=== PATIENT | male | born 1995 | race Caucasian/White ===

== ENCOUNTER 2017-08-17 14:12 | Emergency (ER) | payer MEDICAID ==
[~2017-08-17] VITALS: Ht 175.3 cm; Wt 77.1 kg
[2017-08-17 14:15] VITALS: BP_SYST 146
[2017-08-17] MEDS ORDERED: ONDANSETRON HCL 4 MG/2 ML VIAL ONE (14:44)
[2017-08-17] MEDS ORDERED: ONDANSETRON HCL 4 MG/2 ML VIAL IVP ONE ×2 (14:45→17:30)
[2017-08-17 14:49] LABS: BASOPHILS % (AUTO) 0.2 % (0.0-2.0); HEMATOCRIT 45.7 % (36-54); HEMOGLOBIN 15.5 g/dL (14.0-18.0); LYMPHOCYTES # (AUTO) 1.4 K/uL (1.0-5.5); LYMPHOCYTES % (AUTO) 8.7 % (20.5-51.5); MEAN CORPUSCULAR HEMOGLOBIN 30 pg (27-31); MEAN CORPUSCULAR HGB CONC 34 % (32-36); MEAN CORPUSCULAR VOLUME 87 fL (79.0-98.0); MONOCYTES # (AUTO) 0.7 K/uL (0.0-1.0); MONOCYTES % (AUTO) 4.5 % (1.7-9.3); NEUTROPHILS # (AUTO) 13.7 K/uL (1.8-7.7); PLATELET COUNT (AUTO) 335 K/uL (130-430); RED BLOOD CELL COUNT(AUTO) 5.27 MIL/uL (4.2-6.2); RED CELL DISTRIBUTION WIDTH 11.3 % (9.0-15.0); WHITE BLOOD COUNT (AUTO) 15.8 K/uL (4.8-10.8)
[2017-08-17] MEDS ORDERED: LORazepam 2 MG/ML VIAL (FOR ER USE) IVP ONE (15:00)
[2017-08-17 15:05] LABS: ANION GAP 17 (5-15); CALCIUM 10.3 mg/dL (8.4-11.0); CHLORIDE 92 mmol/L (98-107); CREATININE 1.09 mg/dL (0.55-1.30); GLUCOSE 104 mg/dL (70-99); SODIUM SERUM 129 mmol/L (136-145); UREA NITROGEN, BLOOD 7 mg/dL (8-21)
[2017-08-17 15:09] LABS: ALANINE AMINOTRANSFERASE 52 U/L (12-78); ALBUMIN 5.3 g/dL (3.4-4.8); ALCOHOL, BLOOD 4 mg/dL (<10); ASPARTATE AMINOTRANSFERASE 19 U/L (10-37); TOTAL BILIRUBIN 0.8 mg/dL (0.0-1.0)
[2017-08-17 15:10] LABS: NEUTROPHILS % (AUTO) 86.6 % (40.0-70.0)
[2017-08-17 15:11] LABS: INR 1.1 (0.80-1.20); PROTHROMBIN TIME 11.1 SECS (9.5-12.5)
[2017-08-17 15:13] LABS: ACETAMINOPHEN < 1 ug/mL (1-30); GFR AFRICAN AMERICAN 108 mL/min (>90)
[2017-08-17 15:24] LABS: BILIRUBIN,URINE NEGATIVE (NEGATIVE); BLOOD, URINE 1+ (NEGATIVE); CLARITY/URINE CLEAR (CLEAR); COLOR,URINE YELLOW (YELLOW); GLUCOSE,URINE NEGATIVE (NEGATIVE); KETONES,URINE 2+ (NEGATIVE); LEUKOCYTE ESTERASE ,URINE NEGATIVE (NEGATIVE); NITRITE, URINE NEGATIVE (NEGATIVE); PROTEIN URINE NEGATIVE (NEGATIVE); UROBILINOGEN,URINE 0.2 (0.2-1.0)
[2017-08-17] MEDS ORDERED: NACL 0.9% 1,000 ML IV ONE (15:30)
[2017-08-17 15:51] LABS: BARBITURATE, URINE NEGATIVE (NEG <=200); BENZODIAZEPINE, URINE NEGATIVE (NEG <=150); CANNABINOID, URINE NEGATIVE (NEG <=50); COCAINE, URINE POSITIVE (NEG <=150); METHAMPHETAMINES SCREEN,URINE NEGATIVE (NEG <=500); OPIATE, URINE NEGATIVE (NEG <=100); PHENCYCLIDINE SCREEN,URINE NEGATIVE (NEG <=25); UR TRICYCLIC ANTIDEPRESSANTS NEGATIVE (NEG <=300); URINE AMPHETAMINE NEGATIVE (NEG <=500); URINE METHADONE NEGATIVE (NEG <=200); URINE OXYCODONE SCREEN NEGATIVE (NEG <=100); URINE PROPOXYPHENE SCREEN NEGATIVE (NEG <=300)
[2017-08-17 15:58] LABS: BACTERIA,URINE FEW /HPF (None Seen); COARSE GRANULAR CASTS,URINE 0-1 /LPF (None Seen); MUCUS,URINE 1+ /LPF (None Seen); WBC,URINE 0-3 /HPF (0-3)
[2017-08-17 18:10] VITALS: BP_SYST 116
== END 2017-08-17 18:10 | disposition home or self-care (01) ==
LOC: SED 14:12
DX: T40.5X1A Poisoning by cocaine, accidental (unintentional), initial encounter (principal); F14.129 Cocaine abuse with intoxication, unspecified; E86.0 Dehydration; F17.200 Nicotine dependence, unspecified, uncomplicated; Z71.6 Tobacco abuse counseling; Y92.89 Other specified places as the place of occurrence of the external cause
CPT/HCPCS: 36415; 71045; 80048; 80053; 80307; 81000; 84484; 85025; 85610; 85730; 93005; 96361; 96374; 96375; 96376; 99285; G0480; G0481; G0482; J2060; J2405; J7030

== ENCOUNTER 2018-11-12 11:12 | Emergency (ER) | payer MEDICAID ==
[~2018-11-12] VITALS: Ht 175.3 cm; Wt 72.6 kg
[2018-11-12 11:12] VITALS: BP_SYST 120
[2018-11-12] MEDS ORDERED: DEXAMETHASONE SOD PHOSPHATE 10 MG/ML VIAL IM ONE (12:00)
[2018-11-12 12:04] VITALS: BP_SYST 118
== END 2018-11-12 12:04 | disposition home or self-care (01) ==
LOC: SED 11:12
DX: R09.89 Other specified symptoms and signs involving the circulatory and respiratory systems (principal)
CPT/HCPCS: 70360; 96372; 99283; J1100

== ENCOUNTER 2019-07-23 06:05 | Emergency (ER) | payer MEDICAID ==
[~2019-07-23] VITALS: Ht 175.3 cm; Wt 68.0 kg
[2019-07-23 06:30] VITALS: BP_SYST 123
--- NOTE | 2019-07-23 07:30 | NUR ---
Patient to ER bed 03 to gown for evaluation. Side rails up.
--- NOTE | 2019-07-23 07:32 | NUR ---
Patient arrived in the ED c/o chest wall pain x 1 month. Denied any nausea or vomiting. Denied any shortness of breath. Alert and oriented x4, respirations even and unlabored, ambulating with a steady gait, speaking in full sentences. VS WNL, pain level 2/10. Informed of the wait time. Instructed to notify ED staff if there are any changes in condition or worsening of symptoms. Patient verbalized understanding.
--- NOTE | 2019-07-23 07:35 | NUR ---
Patient ambulated to the bathroom in a steady gait. Urine specimen collected.
--- NOTE | 2019-07-23 08:00 | NUR ---
LEYLA Tubbs at bedside examining patient.
[2019-07-23 08:18] LABS: BASOPHILS % (AUTO) 0.4 % (0.0-2.0); EOSINOPHILS # (AUTO) 0.1 K/uL (0.0-0.4); EOSINOPHILS % (AUTO) 1.2 % (0.0-4.0); HEMATOCRIT 38.9 % (36-54); HEMOGLOBIN 13.8 g/dL (14.0-18.0); LYMPHOCYTES # (AUTO) 2.7 K/uL (1.0-5.5); LYMPHOCYTES % (AUTO) 33.7 % (20.5-51.5); MEAN CORPUSCULAR HEMOGLOBIN 31 pg (27-31); MEAN CORPUSCULAR HGB CONC 36 % (32-36); MEAN CORPUSCULAR VOLUME 87 fL (79.0-98.0); MONOCYTES # (AUTO) 0.4 K/uL (0.0-1.0); MONOCYTES % (AUTO) 5.1 % (1.7-9.3); NEUTROPHILS # (AUTO) 4.7 K/uL (1.8-7.7); NEUTROPHILS % (AUTO) 59.6 % (40.0-70.0); PLATELET COUNT (AUTO) 254 K/uL (130-430); RED BLOOD CELL COUNT(AUTO) 4.47 MIL/uL (4.2-6.2); RED CELL DISTRIBUTION WIDTH 12.1 % (9.0-15.0); WHITE BLOOD COUNT (AUTO) 7.9 K/uL (4.8-10.8)
[2019-07-23 08:33] LABS: SODIUM SERUM 139 mmol/L (136-145)
[2019-07-23 08:34] LABS: ANION GAP 8 (5-15); CHLORIDE 103 mmol/L (98-107); CREATININE 0.81 mg/dL (0.55-1.30); GLUCOSE 96 mg/dL (70-99); POTASSIUM 4.1 mmol/L (3.5-5.1); UREA NITROGEN, BLOOD 10 mg/dL (8-21)
[2019-07-23 08:46] LABS: GFR AFRICAN AMERICAN 149 mL/min (>90)
[2019-07-23 08:49] LABS: ALANINE AMINOTRANSFERASE 25 U/L (12-78); ASPARTATE AMINOTRANSFERASE 14 U/L (10-37); THYROID STIMULATING HORMONE 1.88 uIu/mL (0.36-3.74); TOTAL BILIRUBIN 0.5 mg/dL (0.0-1.0)
[2019-07-23 09:04] VITALS: BP_SYST 139
--- NOTE | 2019-07-23 09:05 | NUR ---
Patient given written and verbal discharge instructions and verbalizes understanding. ER MD discussed with patient the results and treatment provided. Patient in stable condition. ID arm band removed. No Rx given. Patient educated on pain management and to follow up with PMD. Pain Scale 0/10. Opportunity for questions provided and answered. Medication side effect fact sheet provided.
== END 2019-07-23 09:05 | disposition home or self-care (01) ==
LOC: SED 06:05
DX: R07.9 Chest pain, unspecified (principal); K21.9 Gastro-esophageal reflux disease without esophagitis; F41.9 Anxiety disorder, unspecified; F43.9 Reaction to severe stress, unspecified
CPT/HCPCS: 36415; 71046-TC; 80053; 84443-TC; 84484; 85025; 93005; 99284

== ENCOUNTER 2020-01-15 09:07 | Emergency (ER) | payer MEDICAID ==
[~2020-01-15] VITALS: Ht 175.3 cm; Wt 68.0 kg
[2020-01-15 09:07] VITALS: BP_SYST 132
--- NOTE | 2020-01-15 09:07 | NUR ---
Patient to ER bed 7 to gown for evaluation. Side rails up. Assumed care.
--- NOTE | 2020-01-15 09:10 | NUR ---
Patient arrived via POV, AAOx4, and ambulatory with steady gait. Patient states he has had the swelling to his hand for a month but the pain has gotten worse. Patient states he is losing his insurance on the first of the month and wants it to be evaluated. Patient states he would like an X-Ray for evaluation. Will continue to follow up and monitor.
--- NOTE | 2020-01-15 09:11 | NUR ---
ER at bedside examining patient.
[2020-01-15 09:24] VITALS: BP_SYST 132
--- NOTE | 2020-01-15 09:24 | NUR ---
Patient given written and verbal discharge instructions and verbalizes understanding. ER MD discussed with patient the results and treatment provided. Patient in stable condition. ID arm band removed. Rx of Tylenol given. Patient educated on pain management and to follow up with PMD. Pain Scale 3/10. Opportunity for questions provided and answered. Medication side effect fact sheet provided.
== END 2020-01-15 09:24 | disposition home or self-care (01) ==
LOC: SED 09:07
DX: M67.48 Ganglion, other site (principal); F17.210 Nicotine dependence, cigarettes, uncomplicated
CPT/HCPCS: 99282

== ENCOUNTER 2021-04-26 15:54 | Emergency (ER) | payer MEDICAID ==
[~2021-04-26] VITALS: Ht 175.3 cm; Wt 72.6 kg
[2021-04-26 16:07] VITALS: BP_SYST 125
[2021-04-26 16:17] VITALS: BP_SYST 125
== END 2021-04-26 16:18 | disposition home or self-care (01) ==
LOC: SED 15:54
DX: S01.01XD Laceration without foreign body of scalp, subsequent encounter (principal); Z48.02 Encounter for removal of sutures; W45.8XXD Other foreign body or object entering through skin, subsequent encounter
CPT/HCPCS: 99281

== ENCOUNTER 2021-11-09 00:48 | Emergency (ER) | payer MEDICAID ==
[~2021-11-09] VITALS: Ht 175.3 cm; Wt 70.3 kg
--- NOTE | 2021-11-09 00:48 | NUR ---
ER in waiting room examining patient.
[2021-11-09 01:00] VITALS: BP_SYST 117
--- NOTE | 2021-11-09 01:05 | NUR ---
Patient triaged and placed in waiting room. VS checked and patient appears in no acute distress at this time. Accompanied by self , awaiting available bed, and MD notified of need for MSE.
[2021-11-09] MEDS ORDERED: CARB15DR93 BOTH EARS (01:10)
[2021-11-09 01:41] VITALS: BP_SYST 115
--- NOTE | 2021-11-09 01:41 | NUR ---
Patient given written and verbal discharge instructions and verbalizes understanding. ER MD discussed with patient the care provided. Patient in stable condition. Rx of Carbamide peroxide given. Patient educated on pain management and to follow up with PMD. Pain Scale 0/10. Opportunity for questions provided and answered.
== END 2021-11-09 01:41 | disposition home or self-care (01) ==
LOC: SED 00:48
DX: H61.21 Impacted cerumen, right ear (principal); Z79.899 Other long term (current) drug therapy
CPT/HCPCS: 99282

== ENCOUNTER 2022-06-08 11:36 | Emergency (ER) | payer MEDICAID ==
[~2022-06-08] VITALS: Ht 175.3 cm; Wt 72.6 kg
[~2022-06-08 11:36] MED LIST: CARB15DR93 BOTH EARS
[2022-06-08 11:40] VITALS: BP_SYST 107
--- NOTE | 2022-06-08 11:40 | NUR ---
Patient triaged and placed in waiting room. VSS and patient appears in no acute distress at this time. Accompanied by SELF, awaiting available bed, and MD notified of need for MSE.
--- NOTE | 2022-06-08 12:45 | NUR ---
ER DR. HARVEY EXAMINING PT IN TRIAGE
[2022-06-08] MEDS ORDERED: KETOROLAC TROMETHAMINE 30 MG VIAL IM ONE (13:00)
--- NOTE | 2022-06-08 13:05 | NUR ---
NO ANSWER WHEN CALLED TO COME FOR BACK
== END 2022-06-08 13:00 | disposition left against medical advice (07) ==
LOC: SED 11:36
DX: R10.13 Epigastric pain (principal); R11.2 Nausea with vomiting, unspecified; Z79.899 Other long term (current) drug therapy
CPT/HCPCS: 99281

== ENCOUNTER → 2022-10-29 | Emergency (ER) | payer MEDICAID ==
[~2022-10-29] VITALS: Ht 175.3 cm; Wt 70.3 kg
[2022-10-29 17:20] VITALS: BP_SYST 123
[2022-10-29 19:13] LABS: BASOPHILS % (AUTO) 0.4 % (0.0-2.0); EOSINOPHILS # (AUTO) 0.1 K/uL (0.0-0.4); EOSINOPHILS % (AUTO) 1.1 % (0.0-4.0); HEMATOCRIT 46.7 % (36-54); HEMOGLOBIN 16.1 g/dL (14.0-18.0); LYMPHOCYTES % (AUTO) 26.5 % (20.5-51.5); MEAN CORPUSCULAR HEMOGLOBIN 30 pg (27-31); MEAN CORPUSCULAR HGB CONC 35 % (32-36); MEAN CORPUSCULAR VOLUME 87 fL (79.0-98.0); MONOCYTES # (AUTO) 0.5 K/uL (0.0-1.0); MONOCYTES % (AUTO) 6.7 % (1.7-9.3); NEUTROPHILS # (AUTO) 4.9 K/uL (1.8-7.7); NEUTROPHILS % (AUTO) 65.3 % (40.0-70.0); PLATELET COUNT (AUTO) 276 K/uL (130-430); RED BLOOD CELL COUNT(AUTO) 5.39 MIL/uL (4.2-6.2); RED CELL DISTRIBUTION WIDTH 12.2 % (9.0-15.0); WHITE BLOOD COUNT (AUTO) 7.5 K/uL (4.8-10.8)
[2022-10-29 19:37] LABS: ALANINE AMINOTRANSFERASE 25 U/L (12-78); ALBUMIN 4.7 g/dL (3.4-4.8); AMYLASE 42 U/L (0-100); ANION GAP 8 (5-15); ASPARTATE AMINOTRANSFERASE 13 U/L (10-37); CALCIUM 9.6 mg/dL (8.4-11.0); CHLORIDE 100 mmol/L (98-107); CREATININE 1.01 mg/dL (0.55-1.30); GFR AFRICAN AMERICAN 113 mL/min (>90); GLUCOSE 92 mg/dL (70-99); LIPASE 117 U/L (73-393); TOTAL BILIRUBIN 1.2 mg/dL (0.0-1.0); UREA NITROGEN, BLOOD 12 mg/dL (8-21)
[2022-10-29 19:47] LABS: C-REACTIVE PROTEIN QUANT < 0.2 mg/dL (0-0.5)
--- NOTE | 2022-10-29 22:03 | NUR ---
CALLED PT IN WAITING ROOM FOR UREINE SAMPLE AND TO ASSES. PT NOT FOUND.
== END | disposition home or self-care (01) ==
LOC: SED 16:30
DX: K42.9 Umbilical hernia without obstruction or gangrene (principal); R10.33 Periumbilical pain; Z79.899 Other long term (current) drug therapy
CPT/HCPCS: 36415; 76376; 80053; 82150; 83605; 83690; 85025; 86140; 99284

== ENCOUNTER 2022-11-05 15:51 | Emergency (ER) | payer MEDICAID ==
[~2022-11-05] VITALS: Ht 175.3 cm; Wt 75.3 kg
[2022-11-05 16:07] VITALS: BP_SYST 140
[2022-11-05 17:02] VITALS: BP_SYST 132
== END 2022-11-05 17:02 | disposition home or self-care (01) ==
LOC: SED 15:51
DX: S60.221A Contusion of right hand, initial encounter (principal); Z79.899 Other long term (current) drug therapy; W23.0XXA Caught, crushed, jammed, or pinched between moving objects, initial encounter; Y93.89 Activity, other specified; Y92.89 Other specified places as the place of occurrence of the external cause; Y99.8 Other external cause status
CPT/HCPCS: 99283

== ENCOUNTER 2023-01-03 21:36 | Emergency (ER) | payer MEDICAID ==
[~2023-01-03] VITALS: Ht 175.3 cm; Wt 70.3 kg
[2023-01-03 21:48] VITALS: BP_SYST 123
--- NOTE | 2023-01-03 21:50 | NUR ---
Patient triaged and placed in waiting room. VSS and patient appears in no acute distress at this time. Accompanied by SELF, awaiting available bed, and MD notified of need for MSE.
--- NOTE | 2023-01-03 23:00 | NUR ---
CALLED FOR CT HEAD. PATIENT NOT IN WAITING ROOM
--- NOTE | 2023-01-03 23:14 | NUR ---
Note nanyone in EDM - 01/03/23 at 2323 by SDEDCJM PATIENT AMBULATORY FROM HOME REPORTS THAT AT 1645 TODAY AT WORK A GALLON FILLED HYDROFLASK LANDED ON HIS HEAD. -LOC, REPORTS FEELING NAUSEATED. DENIES ANY PAIN AT THIS TIME. HEMATOMA TO THE TOP OF HIS HEAD. VSS. NO ACUTE DISTRESS NOTED AT THIS TIME.
--- NOTE | 2023-01-03 23:14 | NUR ---
Note carley in ED - 01/03/23 at 2323 by SDEDCJM Patient to bed to laya for evaluation. Side rails up. Report given to RAÚL PAGE
--- NOTE | 2023-01-03 23:23 | NUR ---
PATIENT CALLED FOR CT SCAN. PATIENT NOT IN WAITING ROOM
--- NOTE | 2023-01-03 23:33 | NUR ---
CALLED FOR BED PLACEMENT. PATIENT LEFT WITHOUT BEING SEEN
== END 2023-01-03 23:33 | disposition left against medical advice (07) ==
LOC: SED 21:36
DX: S09.90XA Unspecified injury of head, initial encounter (principal); Z53.21 Procedure and treatment not carried out due to patient leaving prior to being seen by health care provider; X58.XXXA Exposure to other specified factors, initial encounter; Y93.89 Activity, other specified; Y92.89 Other specified places as the place of occurrence of the external cause; Y99.8 Other external cause status
CPT/HCPCS: 99281